=== PATIENT | female | born 1970 | race Caucasian/White ===

== ENCOUNTER 2017-07-11 14:36 | Outpatient (CLI) | payer OTHER, MEDICARE ==
--- NOTE | 2017-07-11 15:37 | RAD ---
TWO VIEWS OF THE CHEST: 07/11/17 COMPARISON: 11/08/15. HISTORY: Persistent cough for two months. FINDINGS: Two views of the chest show normal sized cardiomediastinal silhouette. There is no evidence of consol idation, mass, or pleural effusion. The bones are unremarkable. IMPRESSION: No evidence of acute cardiopulmonary disease. POS: [id number]
== END 2017-07-11 14:37 | disposition home or self-care (01) ==
LOC: MADRAD 14:36
PROVIDERS: ATTEND Family Medicine
DX: R05 Cough (principal)
CPT/HCPCS: 71046

== ENCOUNTER 2018-03-10 07:37 | Outpatient (CLI) | payer OTHER, MEDICARE ==
[2018-03-10 09:14] LABS: ALT (SGPT) 20 U/L (8-55); AST (SGOT) 14 U/L (5-34); Alkaline Phosphatase 42 U/L (40-150); Anion Gap 15 mmol/L (10-20); BUN (Urea Nitrogen) 13 mg/dL (7.0-18.7); Bilirubin, Total 0.2 mg/dL (0.2-1.2); Calc. Creatinine Clearance 0 mL/min (70-130); Carbon Dioxide 25 mmol/L (22-29); Cardiac Risk 2.9 (Less than 4.5); Chloride 107 mmol/L (98-107); Cholesterol 139 mg/dl (< 200 Desired); Estimated GFR-MDRD Greater than 90; Globulin 2.9 g/dL (2.4-3.5); Glucose 152 mg/dL (70-105); HDL Cholesterol 48 mg/dL (>60 Neg Risk); LDL Cholesterol, Calculated 50 mg/dL; Potassium 3.8 mmol/L (3.5-5.1); Protein, Total 6.9 g/dL (6.0-8.3); Sodium 143 mmol/L (136-145); Triglycerides 204 mg/dL (Less than 150)
[2018-03-10 09:33] LABS: Thyroid Stimulating Hormone 1.9401 uIU/mL (0.35-4.94)
[2018-03-10 18:23] LABS: Carbamazepine-Tegretol 6.3 ug/mL (4.0-12.0)
[2018-03-10 18:31] LABS: Hemoglobin A1c 7.6 % (4.0-6.0)
[2018-03-10 18:35] LABS: Hep C IgG Ab Non-Reactive (NonReactive); Hep C Index 0.04 S/CO (0-0.79)
[2018-03-10 19:28] LABS: Microalbumin Urine Less than 1.0 mg/dL (0.5-50.0)
== END 2018-03-10 07:38 | disposition home or self-care (01) ==
LOC: MADLAB 07:37
PROVIDERS: ATTEND Family Medicine
DX: Z11.59 Encounter for screening for other viral diseases (principal); E11.21 Type 2 diabetes mellitus with diabetic nephropathy; E11.65 Type 2 diabetes mellitus with hyperglycemia; E78.5 Hyperlipidemia, unspecified
CPT/HCPCS: 36415; 80053; 80061; 80156; 82043; 82306; 83036; 84443; 86803

== ENCOUNTER 2018-11-30 20:41 | Emergency (ER) | payer OTHER, MEDICARE ==
[2018-11-30] MEDS ORDERED: Tetracaine 0.5% OPHTH SOLN/PF 4 ML BOT ONE (21:09)
[2018-11-30] MEDS ORDERED: Fluorescein Opthalmic Strip ONE ×2 (21:22)
== END 2018-11-30 21:43 | disposition home or self-care (01) ==
LOC: MADERS 20:41
DX: H10.9 Unspecified conjunctivitis (principal); E11.9 Type 2 diabetes mellitus without complications; E78.5 Hyperlipidemia, unspecified; E78.00 Pure hypercholesterolemia, unspecified; E66.9 Obesity, unspecified; F31.9 Bipolar disorder, unspecified; F17.210 Nicotine dependence, cigarettes, uncomplicated
CPT/HCPCS: 99283

== ENCOUNTER 2019-09-11 21:07 | Emergency (ER) | payer MEDICARE, OTHER | END 2019-09-11 21:55 | disposition home or self-care (01) | LOC: MADERS 21:07 | DX: B02.9 Zoster without complications (principal); L03.312 Cellulitis of back [any part except buttock and flank]; E11.9 Type 2 diabetes mellitus without complications; E78.5 Hyperlipidemia, unspecified; E78.00 Pure hypercholesterolemia, unspecified; E66.9 Obesity, unspecified; F31.9 Bipolar disorder, unspecified; F17.210 Nicotine dependence, cigarettes, uncomplicated | CPT/HCPCS: 99282 ==

== ENCOUNTER 2019-12-12 08:01 | Emergency (ER) | payer OTHER, MEDICARE ==
[2019-12-12] MEDS ORDERED: Ketorolac Tromethamine 60 MG/2 ML VIAL ONE (08:30)
[2019-12-12] MEDS ORDERED: Clindamycin 150 MG CAP ONE (08:30)
== END 2019-12-12 08:46 | disposition home or self-care (01) ==
LOC: MADERS 08:01
DX: L03.316 Cellulitis of umbilicus (principal); E11.9 Type 2 diabetes mellitus without complications; E78.5 Hyperlipidemia, unspecified; E78.00 Pure hypercholesterolemia, unspecified; E66.9 Obesity, unspecified; F31.9 Bipolar disorder, unspecified; F17.210 Nicotine dependence, cigarettes, uncomplicated; Z79.84 Long term (current) use of oral hypoglycemic drugs; Z79.899 Other long term (current) drug therapy
CPT/HCPCS: 96372; 99283; J1885

== ENCOUNTER 2020-02-06 11:36 | Emergency (ER) | payer OTHER, MEDICARE ==
[2020-02-06] MEDS ORDERED: Diazepam 5 MG TAB ONE (12:22)
[2020-02-06] MEDS ORDERED: Dexamethasone 10 MG/ML VIAL ONE (12:22)
[2020-02-06] MEDS ORDERED: Ketorolac Tromethamine 60 MG/2 ML VIAL ONE (12:22)
[2020-02-06] MEDS ORDERED: HYDROcodone/Acetaminophen 10/325 mg Tablet ONE (12:22)
== END 2020-02-06 12:51 | disposition home or self-care (01) ==
LOC: MADERS 11:36
DX: M62.830 Muscle spasm of back (principal); Z79.891 Long term (current) use of opiate analgesic; Z79.82 Long term (current) use of aspirin; Z79.899 Other long term (current) drug therapy
CPT/HCPCS: 96372; 99283; J1100; J1885

== ENCOUNTER 2020-10-21 18:08 | Emergency (ER) | payer MEDICARE ==
[2020-10-21] MEDS ORDERED: Diazepam 10 MG/2 ML SYRINGE ONE (19:05)
[2020-10-21] MEDS ORDERED: Ketorolac Tromethamine 30 MG/ML VIAL ONE (19:06)
[2020-10-21 19:08] LABS: #Basophils 0.1 thou/uL (0.0-0.2); #Eosinphils 0.2 thou/uL (0.0-0.7); #Lymphocytes 3.3 thou/uL (1.20-3.40); #Monocytes 0.8 thou/uL (0.11-0.59); #Neutrophils 6.7 thou/uL (1.40-6.50); %Basophils 1.3 % (0.0-1.0); %Eosinophils 1.8 % (0.0-10.0); %Lymphocytes 29.4 % (21.0-51.0); %Neutrophils 60.5 % (42.0-75.0); Hemoglobin 14.9 g/dL (12.0-16.0); Mean Corpuscular HGB CONC 31.8 g/dL (32.0-36.0); Mean Corpuscular Hemoglobin 29.6 pg (27.0-31.0); Mean Corpuscular Volume 93.1 fL (78.0-98.0); Mean Platelet Volume 8.6 fL (7.4-10.4); Platelet Count 207 thou/uL (130-400); RBC Distribution Width 12.6 % (11.5-14.5); Red Blood Cell (RBC) Count 5.02 mill/uL (4.20-5.40); White Blood Cell (WBC) Count 11.1 thou/uL (4.8-10.8)
[2020-10-21 19:13] LABS: INR-International Normal Ratio 0.9; Prothrombin Time 12.4 sec (12.0-14.7)
[2020-10-21 19:20] LABS: Anion Gap 13 mmol/L (10-20); BUN (Urea Nitrogen) 16 mg/dL (7.0-18.7); Calc. Creatinine Clearance 0 mL/min (70-130); Calcium 9.3 mg/dL (7.8-10.44); Carbon Dioxide 27 mmol/L (22-29); Chloride 107 mmol/L (98-107); Glucose 112 mg/dL (70-105); Potassium 4.1 mmol/L (3.5-5.1); Sodium 143 mmol/L (136-145)
== END 2020-10-21 20:18 | disposition short-term general hospital (02) ==
LOC: MADERS 18:08
DX: M79.605 Pain in left leg (principal); E11.9 Type 2 diabetes mellitus without complications; E78.5 Hyperlipidemia, unspecified; E78.00 Pure hypercholesterolemia, unspecified; F17.210 Nicotine dependence, cigarettes, uncomplicated; Z79.82 Long term (current) use of aspirin; Z79.899 Other long term (current) drug therapy; Z79.84 Long term (current) use of oral hypoglycemic drugs; W10.9XXA Fall (on) (from) unspecified stairs and steps, initial encounter
CPT/HCPCS: 36415; 80048; 85025; 85610; 85730; 96372; 99284; J1885; J3360

== ENCOUNTER 2021-02-07 16:15 | Emergency (ER) | payer OTHER ==
[2021-02-07] MEDS ORDERED: Ketorolac Tromethamine 60 MG/2 ML VIAL ONE (16:56)
[2021-02-07] MEDS ORDERED: HYDROcodone/Acetaminophen 5/325 mg Tablet ONE (16:56)
[2021-02-07] MEDS ORDERED: Cyclobenzaprine 10 MG TAB ONE (19:15)
[2021-02-08 00:43] LABS: SARS-CoV-2 PCR by NAA Not Detected (NotDetected)
== END 2021-02-07 19:21 | disposition home or self-care (01) ==
LOC: MADERS 16:15
DX: B34.9 Viral infection, unspecified (principal); Z20.822 Contact with and (suspected) exposure to COVID-19; E11.9 Type 2 diabetes mellitus without complications; E78.5 Hyperlipidemia, unspecified; F17.210 Nicotine dependence, cigarettes, uncomplicated
CPT/HCPCS: 71045; 87804; 96372; J1885; U0003; U0005

== ENCOUNTER 2021-09-26 17:58 | Emergency (ER) | payer OTHER | END 2021-09-26 20:15 | disposition home or self-care (01) | LOC: MADERS 17:58 | DX: R05.9 Cough, unspecified (principal); J02.9 Acute pharyngitis, unspecified; H57.89 Other specified disorders of eye and adnexa; E11.9 Type 2 diabetes mellitus without complications; E78.5 Hyperlipidemia, unspecified; E78.00 Pure hypercholesterolemia, unspecified; F17.210 Nicotine dependence, cigarettes, uncomplicated; Z20.822 Contact with and (suspected) exposure to COVID-19; Z79.84 Long term (current) use of oral hypoglycemic drugs; Z79.899 Other long term (current) drug therapy | CPT/HCPCS: 87081; 87430; 99283; U0003; U0005 ==

== ENCOUNTER 2021-11-20 08:26 | Emergency (ER) | payer OTHER ==
[2021-11-20] MEDS ORDERED: diphenhydrAMINE 25 MG CAP ONE (09:12)
[2021-11-20] MEDS ORDERED: methylPREDNISolone Sod Succ/PF 125 MG/2 ML VIAL ONE (09:12)
== END 2021-11-20 10:20 | disposition home or self-care (01) ==
LOC: MADERS 08:26
DX: L29.9 Pruritus, unspecified (principal); E11.9 Type 2 diabetes mellitus without complications; E78.00 Pure hypercholesterolemia, unspecified; F17.210 Nicotine dependence, cigarettes, uncomplicated
CPT/HCPCS: 96372; 99282; J2930

== ENCOUNTER 2022-03-21 13:25 | Emergency (ER) | payer OTHER ==
[2022-03-21] MEDS ORDERED: predniSONE 20 MG TAB ONE (14:16)
== END 2022-03-21 15:02 | disposition home or self-care (01) ==
LOC: MADERS 13:25
DX: J06.9 Acute upper respiratory infection, unspecified (principal); J45.901 Unspecified asthma with (acute) exacerbation; Z20.822 Contact with and (suspected) exposure to COVID-19; E11.9 Type 2 diabetes mellitus without complications; E78.00 Pure hypercholesterolemia, unspecified; F17.210 Nicotine dependence, cigarettes, uncomplicated
CPT/HCPCS: 36415; 71046; 84484; 87804; 93005; J7512; U0003; U0005

== ENCOUNTER 2022-04-18 19:56 | Emergency (ER) | payer OTHER ==
[2022-04-18] MEDS ORDERED: Ketorolac Tromethamine 30 MG/ML VIAL ONE (21:37)
== END 2022-04-18 22:30 | disposition home or self-care (01) ==
LOC: MADERS 19:56
DX: M94.0 Chondrocostal junction syndrome [Tietze] (principal); E78.5 Hyperlipidemia, unspecified; E78.00 Pure hypercholesterolemia, unspecified; E11.9 Type 2 diabetes mellitus without complications; F17.210 Nicotine dependence, cigarettes, uncomplicated; Z79.899 Other long term (current) drug therapy
CPT/HCPCS: 71046; 96372; J1885

== ENCOUNTER 2022-08-30 12:56 | Emergency (ER) | payer OTHER ==
[2022-08-30] MEDS ORDERED: Ipratropium/Albuterol 3 ML NEB ONE (14:05)
[2022-08-30 15:14] LABS: SARS-CoV-2 NAA Rapid Test Not Detected (NotDetected)
== END 2022-08-30 15:45 | disposition home or self-care (01) ==
LOC: MADERS 12:56
DX: J20.9 Acute bronchitis, unspecified (principal); E11.9 Type 2 diabetes mellitus without complications; E78.00 Pure hypercholesterolemia, unspecified; F17.210 Nicotine dependence, cigarettes, uncomplicated; Z20.822 Contact with and (suspected) exposure to COVID-19; Z79.82 Long term (current) use of aspirin; Z79.84 Long term (current) use of oral hypoglycemic drugs; Z79.899 Other long term (current) drug therapy
CPT/HCPCS: 71046; 87804; J7620; U0002

== ENCOUNTER 2023-01-14 16:04 | Emergency (ER) | payer OTHER ==
[2023-01-14] MEDS ORDERED: Lidocaine 4% Patch ONE (16:58)
[2023-01-14] MEDS ORDERED: Acetaminophen 500 MG TAB ONE (16:58)
[2023-01-14] MEDS ORDERED: Aspirin Chewable 81 MG TAB ONE (16:58)
[2023-01-14 17:45] LABS: #Basophils 0.1 thou/uL (0.0-0.2); #Eosinphils 0.2 thou/uL (0.0-0.7); #Lymphocytes 3.7 thou/uL (1.20-3.40); #Monocytes 0.6 thou/uL (0.11-0.59); #Neutrophils 4.1 thou/uL (1.40-6.50); %Basophils 1.4 % (0.0-1.0); %Eosinophils 2.7 % (0.0-10.0); %Lymphocytes 41.8 % (21.0-51.0); %Monocytes 7.2 % (0.0-10.0); %Neutrophils 46.8 % (42.0-75.0); Hematocrit 48.6 % (36.0-47.0); Hemoglobin 15.6 g/dL (12.0-16.0); Mean Corpuscular HGB CONC 32.1 g/dL (32.0-36.0); Mean Corpuscular Hemoglobin 30.7 pg (27.0-31.0); Mean Corpuscular Volume 95.8 fl (78.0-98.0); Mean Platelet Volume 9.2 fL (7.4-10.4); Platelet Count 164 10x3/uL (130-400); RBC Distribution Width 12.7 % (11.5-14.5); Red Blood Cell (RBC) Count 5.08 mill/uL (4.20-5.40); White Blood Cell (WBC) Count 8.8 10x3/uL (4.8-10.8)
[2023-01-14 18:00] LABS: ALT (SGPT) 12 U/L (8-55); AST (SGOT) 18 U/L (5-34); Alkaline Phosphatase 45 U/L (40-110); Anion Gap 17 mmol/L (10-20); BUN (Urea Nitrogen) 16 mg/dL (9.8-20.1); Bilirubin, Total 0.3 mg/dL (0.2-1.2); Calc. Creatinine Clearance 0 mL/min (70-130); Carbon Dioxide 20 mmol/L (22-29); Chloride 108 mmol/L (98-107); Estimated GFR 106; Glucose 87 mg/dL (70-105); Lipase 76 U/L (8-78); Sodium 141 mmol/L (136-145); Troponin I Less than 0.010 ng/mL (< 0.028)
== END 2023-01-14 16:32 | disposition home or self-care (01) ==
LOC: MADERS 16:04
DX: S20.212A Contusion of left front wall of thorax, initial encounter (principal); E11.9 Type 2 diabetes mellitus without complications; E78.2 Mixed hyperlipidemia; F17.210 Nicotine dependence, cigarettes, uncomplicated; Z79.899 Other long term (current) drug therapy; Z79.82 Long term (current) use of aspirin; Z79.84 Long term (current) use of oral hypoglycemic drugs; X50.1XXA Overexertion from prolonged static or awkward postures, initial encounter
CPT/HCPCS: 36415; 80053; 83690; 84484; 85025; 85379; 93005; 94760

== ENCOUNTER 2023-04-15 12:10 | Emergency (ER) | payer OTHER ==
[2023-04-15 13:07] LABS: Blood, Urine Negative (Negative); Clarity Slightly Cloudy (Clear); Glucose, Urine (Dipstick) 100 mg/dL (Negative); Leukocyte Small (Negative); Nitrite Positive (Negative); Protein, Urine (Dipstick) Negative (Neg-Trace)
[2023-04-15 13:14] LABS: Bilirubin Unable to Interpret (Negative); Ketone, Urine Unable to Interpret mg/dL (Negative); Urobilinogen UNABLE TO INTERPRET mg/dL (Less than 2)
[2023-04-15 13:19] LABS: Bacteria/HPF None Seen HPF (None Seen); CAUTI Indications for Culture Dysuria,urgency,freq; RBC/HPF 0-3 HPF (0-3)
[2023-04-15 13:22] LABS: Urine Culture Reflex Yes Yes
== END 2023-04-15 14:43 | disposition home or self-care (01) ==
LOC: MADERS 12:10
DX: N39.0 Urinary tract infection, site not specified (principal); M25.461 Effusion, right knee; E11.9 Type 2 diabetes mellitus without complications; E78.2 Mixed hyperlipidemia; F17.210 Nicotine dependence, cigarettes, uncomplicated; Z79.82 Long term (current) use of aspirin; Z79.899 Other long term (current) drug therapy
CPT/HCPCS: 81001; 87086

== ENCOUNTER 2023-08-13 19:37 | Emergency (ER) | payer OTHER ==
[2023-08-13] MEDS ORDERED: Orphenadrine Citrate 60 MG/2 ML VIAL ONE (20:30)
[2023-08-13] MEDS ORDERED: Ketorolac Tromethamine 60 MG/2 ML VIAL ONE (20:31)
[2023-08-13] MEDS ORDERED: Lidocaine 4% Patch ONE (20:31)
== END 2023-08-13 22:16 | disposition home or self-care (01) ==
LOC: MADERS 19:37
DX: M54.50 Low back pain, unspecified (principal); F17.210 Nicotine dependence, cigarettes, uncomplicated
CPT/HCPCS: 72128; 72131; 96372; 99283; J1885; J2360